=== PATIENT | male | born 1965 | race African-American/Black ===

== ENCOUNTER 2019-05-02 22:53 | Emergency (ER) | payer MEDICAID ==
[~2019-05-02] VITALS: Ht 180.3 cm; Wt 72.6 kg
[~2019-05-02 22:53] MED LIST: IBUPROFEN600 MG ORAL; NORCO 5-325 TA1 EACH ORAL
[2019-05-02 23:00] VITALS: BP 106/66
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
[2019-05-02] MEDS ORDERED: Ketorolac 60mg Inj IM ONE (23:45)
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
--- NOTE | 2019-05-02 23:58 | NUR ---
ED Nurse Note: pt refused im injection toradol, pt states he wants to take po medication, ermd notified.
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
[2019-05-03] MEDS ORDERED: IBUPROFEN600 MG ORAL (00:26)
== END 2019-05-03 00:30 | disposition home or self-care (01) ==
LOC: EMR 23:07
DX: S20.211A Contusion of right front wall of thorax, initial encounter (principal); X58.XXXA Exposure to other specified factors, initial encounter; Y92.9 Unspecified place or not applicable
CPT/HCPCS: 71101; Z7502; 99283